=== PATIENT | female | born 1995 | race Caucasian/White ===

== ENCOUNTER 2017-04-29 02:28 | Observation (INO) ==
[2017-04-29] MEDS ORDERED: 0.9 % Sodium Chloride 1,000 ML IVC SCH (04:15)
[2017-04-29] MEDS ORDERED: Ondansetron 4 MG/2 ML VIAL IVP PRN ×2 (04:16→12:17)
[2017-04-29] MEDS ORDERED: cefOXitin 2,000 MG in D5% in Water (Mini-Bag+) 100 ML IVPB ONE (04:17)
[2017-04-29] MEDS: *HR* HYDROmorphone (PF) 1 MG/ML SYRINGE IVP PRN ×7 (04:40→20:47)
--- NOTE | 2017-04-29 08:58 | General Surgery Consult Note ---
Date of Encounter: 04/29/17 Time of Encounter: 08:56 Assessment and Plan (1) Appendicitis, acute, with peritonitis Current Visit: Yes Status: Acute Plan for Laparoscopic Appendectomy.Risks were explained and she agrees to proceed. History of Present Illness Consult date: 04/29/17 Reason for consult: abdominal pain History of present illness: this is a 22-year-old female presents to the hospital via outlying facility. She was identified to have a appendicitis on CT. When she was transferred to ED. she reports the pain is a 10 out of 10 currently. States the pain does not radiate. Past Med Surg Social Fam HX - Past Medical History Psychiatric history: anxiety, depression, prior suicide attempt, previous psychiatric hospitalization - Past Surgical History Surgical History: cholecystectomy - Social History Smoking Status: Current every day smoker Packs per day: 1 Smokeless Tobacco Status: No Alcohol use: none Drug use: none - Family History Mother Hx Family Endocrine Disorder: Yes (DM) Hx Family Neurologic Disorders: Yes (brain tumor) Medications and Allergies Escitalopram [Lexapro] 10 mg PO DAILY 04/29/17 [History] HYDROcodone/Acet 5/325 mg [Renner 5-325 mg] 1 tab PO Q6H PRN 04/29/17 [History] HydrOXYzine 10 mg PO HS PRN 04/29/17 [History] Ibuprofen [Motrin] 600 mg PO Q8HR PRN 04/29/17 [History] Allergies No Known Allergies Allergy (Verified 04/29/17 08:02) Review of Systems All systems PM: reviewed and no additional remarkable complaints except as stated All systems PM: A 10-system review of systems was performed and is negative for pertinent findings except as documented above in the HPI. General Surgery Exam Initial Vital Signs Temp Pulse Resp BP Pulse Ox 98.5 F 69 13 111/69 97 04/29/17 03:55 04/29/17 03:55 04/29/17 03:55 04/29/17 03:55 04/29/17 03:55 - Eyes PERRL, normal ocular movement - ENT normal nares, normal mucosa - Neck trachea midline - Respiratory normal respiratory effort - Cardiovascular Cardiovascular exam: Present: RRR - Abdomen Abdomen general surgery: Present: soft, tender Abdominal Tenderness: Present: RLQ - Genitourinary Present: normal perineum - Integumentary Integumentary general surgery: Present: warm and dry, no abnormal pigmentation - Psychiatric Psychiatric general surgery: Present: A&Ox3, appropriate Exam Initial Vital Signs Temp Pulse Resp BP Pulse Ox 98.5 F 69 13 111/69 97 04/29/17 03:55 04/29/17 03:55 04/29/17 03:55 04/29/17 03:55 04/29/17 03:55 Results - Labs All other labs normal. - Imaging CT scan - abdomen: report reviewed CT scan - pelvis: report reviewed Consult Discharge Plan - Plan Referrals: Rich Mcgrath DO [Primary Care Provider] -
--- NOTE | 2017-04-29 09:05 | Anesthesia Evaluation PreOp ---
Date of Encounter: 04/29/17 Time of Encounter: 09:03 - Past History Planned Operation: lap appy Cardiac History: Denies any Significant Hx Pulmonary History: Smoker VIDEO SURVEILLANCE TECHNICIAN History: Other (depression, anxiety, h/o SI) Other Medical History: Denies Any Significant HX Anesthesia History: Past Anesthesia (foot multiple times, cholecyst) Alcohol Use: none, occasionally Drug use: none Medications and Allergies Escitalopram [Lexapro] 10 mg PO DAILY 04/29/17 [History] HYDROcodone/Acet 5/325 mg [Bieber 5-325 mg] 1 tab PO Q6H PRN 04/29/17 [History] HydrOXYzine 10 mg PO HS PRN 04/29/17 [History] Ibuprofen [Motrin] 600 mg PO Q8HR PRN 04/29/17 [History] Allergies No Known Allergies Allergy (Verified 04/29/17 08:02) - Meds/Allergy Pre-op Review Medications Reviewed: Yes Allergies Reviewed: Yes Beta Blockers on Current Med List: No Anesthesia Exam Vital Signs/O2 Sat/Glucose, Most Current Temp Pulse Resp BP Pulse Ox 04/29/17 07:35 98.0 F 64 16 114/77 97 Height: 1.7 Weight: 82 NPO (# of Hours): >8 - HEENT Pupil (Motor): Pupils equal, EOMI Mallampati: I Teeth: Normal Oral Opening: Greater than 3 - VIDEO SURVEILLANCE TECHNICIAN LOC: Oriented VIDEO SURVEILLANCE TECHNICIAN Motor: Normal RUE, Normal LUE, Normal RLE, Normal LLE, Normal Face VIDEO SURVEILLANCE TECHNICIAN Sensory: Normal: RUE, LUE, RLE, LLE, Face - Cardiac Rhythm: Regular Murmur: None - Pulmonary Breath Sounds: bilateral Clear Respiratory Effort: Symmetrical Anesthesia Assess/Plan ASA Score: 2 Modified Causey Scale for Level of Consciousness: Cooperative, oriented, and tranquil Anesthetic Plan: General Monitoring Plan: Standard Monitors Recovery Plan: PACU
[2017-04-29] MEDS ORDERED: Ondansetron 4 MG/2 ML VIAL IVP ONE (09:54)
[2017-04-29] MEDS ORDERED: *HR* Promethazine 25 MG/ML VIAL IVP PRN (09:54)
[2017-04-29] MEDS ORDERED: Neostigmine Methylsulfate 3 MG/3 ML SYRINGE ONE (09:57)
[2017-04-29] MEDS ORDERED: *HR* Rocuronium Bromide 50 MG/5 ML VIAL ONE (10:01)
[2017-04-29] MEDS ORDERED: Lidocaine -MPF 2% 2 ML VIAL ONE (10:01)
[2017-04-29] MEDS ORDERED: Ondansetron 4 MG/2 ML VIAL ONE (10:01)
[2017-04-29] MEDS ORDERED: *HR* Propofol 200 MG/20 ML VIAL IVP ONE (10:01)
[2017-04-29] MEDS ORDERED: *HR* FentaNYL (PF) 100 MCG/2 ML VIAL ONE (10:01)
[2017-04-29] MEDS ORDERED: Dexamethasone 4 MG/ML VIAL ONE (10:01)
[2017-04-29] MEDS ORDERED: *HR* Midazolam HCl 2 MG/2 ML VIAL ONE (10:01)
[2017-04-29] MEDS ORDERED: Lidocaine -MPF 4% 5 ML AMPUL ONE (10:01)
[2017-04-29] MEDS ORDERED: Lacri-Lube 3.5 GM TUBE ONE (10:01)
[2017-04-29] MEDS ORDERED: Ketorolac 30 MG/ML VIAL ONE (10:05)
--- NOTE | 2017-04-29 10:31 | Operative Note ---
Date of procedure: 04/29/17 Pre-op diagnosis: Appendicitis Post-op diagnosis: same Procedure: Laparoscopic appendectomy Anesthesia: HENRY Surgeon: Jair Cano Estimated blood loss (cc): 5 Specimen: Appendix Condition: stable Disposition: same day Procedure in Detail: After informed consent, patient was taken to the operating room placed in supine position. After adequate sedation anesthesia the abdomen was prepped and draped. A 12 mm cannula was placed in the umbilicus. A 5 mm cannulas placed in suprapubic region and the left lower quadrant. Camera was inserted and the abdomen after a pneumoperitoneum. 2 Seamus graspers were used to identify the base of the appendix. A appendiceal window was created. A GORDON endoscopic stapler was placed across the base. A vascular load was placed across the mesoappendix. Once the appendix was was placed in an Endobag and removed through the umbilicus. The right lower quadrant was suctioned dry no bleeding was identified. Remainder the pneumoperitoneum was evacuated. The umbilicus was closed with an 0 Vicryl suture in [id number] fashion. Skin was closed with 4-0 Vicryl suture and Dermabond.
[2017-04-29] MEDS ORDERED: Acetaminophen IV 1,000 MG/100 ML INFUS..BTL IVPB ONE (11:22)
[2017-04-29] MEDS ORDERED: Gabapentin 300 MG CAPSULE PO ONE (11:45)
[2017-04-29] MEDS ORDERED: Gabapentin 300 MG CAPSULE ONE (11:51)
[2017-04-29] MEDS ORDERED: *HR* HYDROmorphone (PF) 1 MG/ML SYRINGE IVP PRN (12:17)
[2017-04-29] MEDS: 0.9 % Sodium Chloride 1,000 ML IVC SCH (13:11)
--- NOTE | 2017-04-29 13:48 | Anesthesia Evaluation Post Op ---
Date of Encounter: 04/29/17 Time of Encounter: 11:40 - Vital Signs Vital Signs: Vital Signs/O2 Sat/Glucose, Most Current Temp Pulse Resp BP Pulse Ox 04/29/17 11:55 97.9 F 51 14 107/55 94 04/29/17 11:45 50 15 108/58 93 04/29/17 11:35 97.9 F 53 14 111/60 94 04/29/17 11:25 50 13 107/58 95 04/29/17 11:15 53 15 113/87 98 04/29/17 11:05 64 19 112/62 99 04/29/17 10:55 97.9 F 51 13 108/52 96 04/29/17 10:45 52 15 114/59 94 04/29/17 10:35 55 16 120/63 97 04/29/17 10:25 97.4 F L 54 20 122/71 100 - Lungs Lungs: Clear Ascult./Percussion - Airway Airway: Non-obstructed - Cardiovascular Regular Rate - Mental Status Mental Status: Alert & Oriented, Answers Appropriately - Pain Pain Scale: 7 (additional pain meds ordered) Pain Scale used: Numeric (1 - 10) - Nausea Vomiting Nausea Vomiting: Not Present - Hydration Hydration: Tolerates oral liquids - Discharge PostOp Status: Transfer Patient to floor Anes Supervising Prov Stmt: Pt seen/evaluated, VSS and pt has met criteria for discharge to floor. - MD Freddy
--- NOTE | 2017-04-29 14:49 | Discharge Summary ---
Date of Encounter: 04/29/17 Time of Encounter: 14:30 - Discharge Medications Prescriptions: OxyCODONE/APAP 5/325 [Percocet 5/325 MG] 1 each PO Q6HR PRN #30 tablet PRN Reason: Moderate Pain Ibuprofen [Motrin] 600 mg PO Q8HR PRN #50 tablet PRN Reason: Mild Pain Docusate [Colace] 100 mg PO BID #30 capsule Home Medications: Docusate [Colace] 100 mg PO BID #30 capsule 04/29/17 [Rx] Escitalopram [Lexapro] 10 mg PO DAILY 04/29/17 [History] HydrOXYzine 10 mg PO HS PRN 04/29/17 [History] Ibuprofen [Motrin] 600 mg PO Q8HR PRN #50 tablet 04/29/17 [Rx] OxyCODONE/APAP 5/325 [Percocet 5/325 MG] 1 each PO Q6HR PRN #30 tablet 04/29/17 [Rx] Allergies/Adverse Reactions: Allergies No Known Allergies Allergy (Verified 04/29/17 08:02) General Surgery Exam Initial Vital Signs Temp Pulse Resp BP Pulse Ox 98.5 F 69 13 111/69 97 04/29/17 03:55 04/29/17 03:55 04/29/17 03:55 04/29/17 03:55 04/29/17 03:55 - General physical appearance well developed, well nourished, no distress - Eyes normal ocular movement - ENT normal mucosa, atraumatic, normocephalic - Neck trachea midline - Respiratory normal respiratory effort, clear to auscultation - Cardiovascular Cardiovascular exam: Present: RRR - Abdomen Abdomen general surgery: Present: bowel sounds present, soft, tender (Expected postoperative tenderness) - Incision Incision: Present: clean and dry, intact - Integumentary Integumentary general surgery: Present: warm and dry - Neurologic Present: CN 2-12 grossly intact - Psychiatric Psychiatric general surgery: Present: appropriate, oriented to person, oriented to place, oriented to time, speech is normal, memory intact Date of admission: 04/29/17 03:44 Primary care physician: Rich Mcgrath DO - Patient Status Disposition: Home, Self-Care Condition: Good Functional capacity at discharge: independent ambulation Overall status at discharge: patient is progressing back to baseline - Discharge Instructions Follow Up With: Rich Mcgrath DO [Primary Care Provider] - Deborah Barboza SALES ADVISOR [Advanced Practice Nurse] - 05/10/17 8:45 am (Surgery follow-up) Forms: Work/School Release Additional Instructions: #1 may shower 04/30/17, no tub bath or swimming for 2 weeks #2 wash incisions with soap and water and pat dry daily #3 no lifting, pushing, pulling more than 20 pounds for the next 2 weeks #4 no driving until off narcotics for 24 hours and able to safely react in the car #5 may climb stairs - Diet and Activity Activity: other (See additional instructions above) Diet: advance to your usual diet - Hospital Course Hospital course: Ms. Jensen is a 22 year old female presented to the hospital for complaints of abdominal pain. She was found to have acute appendicitis. She was given IV antibiotics and taken to the operating room for a laparoscopic appendectomy with Dr. Cano. Postoperatively, her pain is significantly improved. She is now experiencing incisional pain. We will begin discharge planning to home when the patient meets discharge criteria including vital signs are stable and afebrile, pain is well-controlled with oral pain medication, tolerating liquids without nausea or vomiting, voiding and ambulating without difficulty. - Time Spent with Patient Total time spent providing and/or coordinating discharge services: Less than 30 minutes - Attending Attestation I examined this patient and my medical decision-making was reviewed with the BIODIESEL PRODUCTION ASSOCIATE/PA/Advanced Practice Nurse/Resident Physician. I agree with the documented findings, disposition and treatment plan as described except to the extent set forth below.
[2017-04-29] MEDS: *HR* OxyCODONE/APAP 5/325 TABLET PO PRN ×2 (14:59→22:22)
[2017-04-29] MEDS: Nicotine 14 MG PATCH.TD24 TD SCH (17:23)
[2017-04-30] MEDS: *HR* HYDROmorphone (PF) 1 MG/ML SYRINGE IVP PRN ×3 (00:13→10:54)
[2017-04-30] MEDS: 0.9 % Sodium Chloride 1,000 ML IVC SCH ×2 (00:15→15:36)
[2017-04-30] MEDS: Nicotine 14 MG PATCH.TD24 TD SCH (08:16)
[2017-04-30] MEDS: *HR* OxyCODONE/APAP 5/325 TABLET PO PRN (08:54)
[2017-04-30] MEDS ORDERED: *HR* OxyCODONE/APAP 10/325 TABLET PO PRN (11:59)
--- NOTE | 2017-04-30 15:21 | Discharge Summary ---
Date of Encounter: 04/30/17 Time of Encounter: 15:20 - Discharge Diagnosis (1) Appendicitis, acute, with peritonitis Priority: Primary Status: Resolved (2) Postoperative urinary retention Priority: Secondary Status: Acute - Discharge Medications Prescriptions: OxyCODONE/APAP 5/325 [Percocet 5/325 MG] 1 each PO Q6HR PRN #30 tablet PRN Reason: Moderate Pain Ibuprofen [Motrin] 600 mg PO Q8HR PRN #50 tablet PRN Reason: Mild Pain Docusate [Colace] 100 mg PO BID #30 capsule Tamsulosin [Flomax] 0.4 mg PO DAILY #7 cap.er.24h Home Medications: Docusate [Colace] 100 mg PO BID #30 capsule 04/29/17 [Rx] Escitalopram [Lexapro] 10 mg PO DAILY 04/29/17 [History] HydrOXYzine 10 mg PO HS PRN 04/29/17 [History] Ibuprofen [Motrin] 600 mg PO Q8HR PRN #50 tablet 04/29/17 [Rx] OxyCODONE/APAP 5/325 [Percocet 5/325 MG] 1 each PO Q6HR PRN #30 tablet 04/29/17 [Rx] Tamsulosin [Flomax] 0.4 mg PO DAILY #7 cap.er.24h 04/30/17 [Rx] Allergies/Adverse Reactions: Allergies No Known Allergies Allergy (Verified 04/29/17 08:02) General Surgery Exam Initial Vital Signs Temp Pulse Resp BP Pulse Ox 98.5 F 69 13 111/69 97 04/29/17 03:55 04/29/17 03:55 04/29/17 03:55 04/29/17 03:55 04/29/17 03:55 - General physical appearance well developed, well nourished, no distress - Eyes normal ocular movement - ENT normal mucosa, atraumatic, normocephalic - Neck trachea midline - Respiratory normal respiratory effort, clear to auscultation - Cardiovascular Cardiovascular exam: Present: RRR - Abdomen Abdomen general surgery: Present: bowel sounds present, soft, tender (expected post-operative tenderness) - Incision Incision: Present: clean and dry, intact - Integumentary Integumentary general surgery: Present: warm and dry - Neurologic Present: CN 2-12 grossly intact - Musculoskeletal Present: normal gait, normal posture - Psychiatric Psychiatric general surgery: Present: appropriate, oriented to person, oriented to place, oriented to time, speech is normal, memory intact Date of admission: 04/29/17 03:44 Primary care physician: Rich Mcgrath DO Discharging clinician: Jair Cano (Fredi Barboza) Anticipated date of discharge: 04/30/17 - Patient Status Disposition: Home, Self-Care Condition: Good Functional capacity at discharge: independent ambulation Overall status at discharge: patient is progressing back to baseline - Discharge Instructions Follow Up With: Rich Mcgrath DO [Primary Care Provider] - Deborah Barboza CNP [Advanced Practice Nurse] - 05/10/17 8:45 am (Surgery follow-up) Paul Sheriff MD [Partnered Physician] - (Will need 1 week f/u if discharged with mon catheter in place) Forms: Work/School Release Additional Instructions: #1 may shower 04/30/17, no tub bath or swimming for 2 weeks #2 wash incisions with soap and water and pat dry daily #3 no lifting, pushing, pulling more than 20 pounds for the next 2 weeks #4 no driving until off narcotics for 24 hours and able to safely react in the car #5 may climb stairs Mon catheter- cleanse around catheter with soap and water daily. Empty bag 3 times daily and as needed if full. - Diet and Activity Activity: increase activity as tolerated Diet: advance to your usual diet - Hospital Course Hospital course: Ms. Jensen is a 22 year old female presented to the hospital for complaints of abdominal pain. She was found to have acute appendicitis. She was given IV antibiotics and taken to the operating room for a laparoscopic appendectomy with Dr. Cano. Postoperatively, her pain is significantly improved. She is now experiencing incisional pain. The patient experienced post-operative urinary retention and did have to have a mon catheter inserted. I discussed her case with urology and they recommended starting the patient on flomax which was initiated while inpatient. We will check a post-void residual and discharge to home with mon catheter if residual greater than amount voided. Continue flomax for 1 week. Plan for follow-up with urology in 1 week if discharged with a mon catheter. May discharge to home without a mon catheter if residual less than amount voided. Continue flomax for 1 week. We will plan for outpatient follow-up in 10-14 days. - Time Spent with Patient Total time spent providing and/or coordinating discharge services: Less than 30 minutes Labs on day of discharge: Labs from last 24 hours 04/29/17 05:34 POC Glucose 114 H - Attending Attestation I examined this patient and my medical decision-making was reviewed with the FURNACE MAINTENANCE/PA/Advanced Practice Nurse/Resident Physician. I agree with the documented findings, disposition and treatment plan as described except to the extent set forth below.
[2017-04-30] MEDS ORDERED: Simethicone 80 MG TAB.CHEW PO PRN (15:28)
[2017-04-30 15:32] VITALS: BP 102/60
[2017-04-30] MEDS: Ibuprofen 600 MG TABLET PO SCH ×2 (15:32→15:38)
[2017-04-30 16:54] LABS: Bilirubin,Urine Negative (Negative); Blood,Urine Small (Negative); Clarity,Urine Cloudy (Clear); Color,Urine Yellow (Yellow); Glucose,Urine (UA) Normal (Normal); Ketones,Urine Trace mg/dL (Negative); Leukocyte Esterase,Urine Small (Negative); Nitrite,Urine Negative (Negative); Protein,Urine Negative (Neg-Trace); Specific Gravity,Urine 1.017 (1.010-1.025); Urobilinogen,Urine Normal (Normal)
[2017-04-30 16:55] LABS: Bacteria,Urine None Seen per hpf (None-Few); Hyaline Casts,Urine None Seen per lpf (None-Few); Squamous Epithelial Cell,Urine Many per lpf (None-Few)
== END 2017-04-30 18:23 | disposition home or self-care (01) ==
LOC: 3ANU
PROVIDERS: ADMIT Surgery; ATTEND Surgery